=== PATIENT | female | born 1985 | race Caucasian/White ===

== ENCOUNTER 2017-11-21 15:44 | Emergency (ER) | payer OTHER ==
[~2017-11-21] VITALS: Ht 175.3 cm; Wt 113.4 kg
[2017-11-21] MEDS ORDERED: KEFLEX500 M1 PO (16:19)
== END 2017-11-21 16:41 | disposition home or self-care (01) ==
LOC: ER 15:44
DX: L03.012 Cellulitis of left finger (principal)